=== PATIENT | male | born 1965 | race Caucasian/White ===

== ENCOUNTER 2018-03-08 21:23 | Inpatient (IN) | payer MEDICARE, MEDICAID ==
[~2018-03-08] VITALS: Ht 157.5 cm; Wt 48.5 kg
--- NOTE | 2018-03-08 21:27 | NUR ---
PT TAKEN TO BED 11 VIA W/C
[2018-03-08 21:28] VITALS: BP 115/72
--- NOTE | 2018-03-08 21:28 | NUR ---
Dr. Rowan evaluating patient at bedside.
[2018-03-08] MEDS ORDERED: NACL 0.9% 1,000 ML IV ONE (21:30)
[2018-03-08] MEDS ORDERED: LORazepam 2 MG/ML VIAL IVP ONE ×2 (21:34→21:40)
[2018-03-08] MEDS ORDERED: LORazepam 2 MG/ML VIAL ONE (21:34)
--- NOTE | 2018-03-08 21:34 | NUR ---
52/M BIB , WAITING IN THE LOBBY, PT EXPERIENCED SEIZURE, PT TRANSPORTED TO BED 11 V[address] WHEELCHA[address] ER MD [address] AMATO AT BEDSIDE. SEIZURE PRECAUTIONS INITIATED, PT PLACED ON MONITOR, SPO2 99% ON ROOM AIR, RR 22, HR 115, BP 115/72 AT THIS TIME. IV ACCESS STARTED ON L AC AND R AC. 2MG ATIVAN IVP AND 1L NS BOLUS STARTED PER VERBAL ORDER FROM DR AMATO. DELGADO CATH STARTED, URINE SAMPLE SENT TO LAB. HX SEIZURE, RX DILANTIN, KEPPRA, DRONABINOL, AMITOPTYLINE. NKA.
[2018-03-08] MEDS ORDERED: NACL 0.9% IV ONE (21:40)
[2018-03-08] MEDS ORDERED: VALPROATE SODIUM IV ONE (21:40)
--- NOTE | 2018-03-08 21:40 | NUR ---
PT AWAKE, AOX4. PT DENIES PAIN AT THIS TIME. PT REPORTS LAST SEIZURE LAST WEDNESDAY, PT REPORTS BEING COMPLIANT WITH RX DILANTIN AND KEPPRA. PT REPORTS MARIJUANA/DRONABINOL USE, DENIES SUBSTANCE ABUSE.
[2018-03-08] MEDS ORDERED: VALPROATE SODIUM 500 MG/5 ML VIAL IV ONE (22:06)
--- NOTE | 2018-03-08 22:10 | NUR ---
DR AMATO STATED TO HOLD DEPAKON IV AND ATIVAN IV AT THIS TIME. DISCUSSED THAT PT TAKES RX DILANTIN AND KEPPRA. ORDERS PENDING AT THIS TIME.
[2018-03-08 22:20] LABS: BASOPHILS # (AUTO) 0.1 K/uL (0.00-0.22); BASOPHILS % (AUTO) 1.1 % (0.0-2.0); EOSINOPHILS # (AUTO) 0.1 K/uL (0-0.4); EOSINOPHILS % (AUTO) 2.2 % (0.0-4.0); LYMPHOCYTES # (AUTO) 2.4 K/uL (2.0-11.5); LYMPHOCYTES % (AUTO) 38.8 % (20.5-51.1); MEAN CORPUSCULAR HEMOGLOBIN 31 pg (27-31); MEAN CORPUSCULAR HGB CONC 34 g/dL (33-37); MONOCYTES # (AUTO) 0.5 K/uL (0.8-1.0); MONOCYTES % (AUTO) 7.8 % (1.7-9.3); NEUTROPHILS # (AUTO) 3.2 K/uL (1.8-7.7); NEUTROPHILS % (AUTO) 50.1 % (42.2-75.2); PLATELET COUNT (AUTO) 226 K/uL (140-450); RED BLOOD CELL COUNT(AUTO) 4.47 MIL/uL (4.20-6.10); RED CELL DISTRIBUTION WIDTH 13.4 % (11.6-13.7); WHITE BLOOD COUNT (AUTO) 6.3 K/uL (4.8-10.8)
[2018-03-08 22:29] LABS: BARBITURATE, URINE NEG. ng/ml (NEG <=200); BENZODIAZEPINE, URINE NEG. ng/mL (NEG <=200); CANNABINOID, URINE POS. ng/mL (NEG <=50); COCAINE, URINE NEG. ng/mL (NEG <=300); OPIATE, URINE NEG. ng/mL (NEG <=2000); PHENCYCLIDINE SCREEN,URINE NEG. ng/mL (NEG <=25)
[2018-03-08 22:30] LABS: ANION GAP 9.4 (8-16); CARBON DIOXIDE 29.2 mmol/L (21-32); CREATININE 1.2 mg/dL (0.7-1.3); POTASSIUM 3.6 mmol/L (3.5-5.1)
[2018-03-08 22:42] LABS: PHENOBARBITAL < 1 ug/ml (15-40); PHENYTOIN (DILANTIN) 21.6 ug/ml (10.0-20.0)
--- NOTE | 2018-03-08 23:26 | NUR ---
PT SLEEPING COMFORTABLY IN BED, RR EVEN AND UNLABORED. ALL NEEDS MET AT THIS TIME.
[2018-03-09] MEDS ORDERED: PHEN100C3 PO (00:04)
[2018-03-09] MEDS ORDERED: AMIT25TA28 PO (00:07)
[2018-03-09] MEDS ORDERED: LEVE1000 PO (00:07)
--- NOTE | 2018-03-09 01:31 | NUR ---
Patient appears to be resting comfortably in bed. Vital Signs within normal limits. Respirations even and unlabored.
--- NOTE | 2018-03-09 02:03 | NUR ---
RECEIVED CALL FROM [facility] [employer] SPOKE WITH THELMA, STATED SHE WILL CALL BACK.
--- NOTE | 2018-03-09 02:39 | NUR ---
Pt transferred to Tele via .
--- NOTE | 2018-03-09 02:45 | NUR ---
Patient will be admitted to [facility]. Admited to TELE. Will go to room 112A. Belongings list completed. Report to BROCK NIETO AT BEDSIDE.
[2018-03-09 02:50] VITALS: BP 115/77
--- NOTE | 2018-03-09 03:00 | NUR ---
ADMITTED PATIENT TO THE TELE UNIT, PATIENT AWAKE AND ORIENTED X3, NO S/S OF DISTRESS NOTED, RESPIRATION EVEN AND UNLABORED, IV PATENT AND INTACT, SL. TELE MONITOR PLACED ON PATIENT. DELGADO IN PLACE, DRAINING URINE BY GRAVITY. SEIZURE PRECAUTION IN PLACE, SAFETY MEASURE ENSURED, WILL CONTINUE TO MONITOR.
--- NOTE | 2018-03-09 06:23 | NUR ---
PATIENT IS SLEEPING, NO S/S OF DISTRESS NOTED, CALL LIGHT WITHIN REACH, SAFETY MEASURE ENSURED, WILL CONTINUE TO MONITOR.
--- NOTE | 2018-03-09 07:30 | NUR ---
PATIENT AND REPORT RECEIVED FROM WEAVER HAND YAMILET salcedo
--- NOTE | 2018-03-09 07:32 | NUR ---
ENDORSED PLAN OF CARE TO DAY SHIFT, PATIENT RESTING IN BED, IN STABLE CONDITION.
[2018-03-09 08:11] VITALS: BP 98/53
[2018-03-09] MEDS ORDERED: PHENYTOIN 100 MG CAPER PO SCH (09:00)
--- NOTE | 2018-03-09 09:51 | NUR ---
PATIENT HAS BEEN SCREENED AND CATEGORIZED MODERATE NUTRITION RISK. PATIENT WILL BE SEEN WITHIN 3-5 DAYS OF ADMISSION. 03/11/18 03/13/[address]
[2018-03-09] MEDS: levETIRAcetam 500 MG TAB PO SCH ×2 (10:15→21:13)
--- NOTE | 2018-03-09 11:49 | NUR ---
CLINICAL REVIEW FAXED TO [facility] AT [phone]
[2018-03-09 12:00] VITALS: BP 105/60
[2018-03-09] MEDS ORDERED: LORazepam 2 MG/ML VIAL IVP PRN (12:30)
[2018-03-09 14:00] VITALS: BP 105/60
[2018-03-09] MEDS: HYDROcodone/APAP 5/325 MG 1 TAB TAB PO PRN ×3 (14:06→17:44)
[2018-03-09] MEDS ORDERED: DIVALPROEX 500 MG TABEC PO SCH (15:15)
[2018-03-09 16:41] VITALS: BP 91/58
--- NOTE | 2018-03-09 19:25 | NUR ---
RECEIVED REPORT FROM DAY SHIFT NURSE SRI-BROCK. PT RESTING IN BED WITH AT BEDSIDE. AOX4, ON ROOM AIR WITH IV RIGHT AC 20G AND LEFT AC 18G BOTH SALINE LOCKED. IV PATENT AND INTACT. TELE MONITOR PLACED ON PATIENT. DELGADO IN PLACE, DRAINING URINE BY GRAVITY. SEIZURE PRECAUTION IN PLACE. DISCUSSED PLAN OF CARE AND PT VERBALIZED UNDERSTANDING. NO S/S OF RESPIRATORY DISTRESS OR DISCOMFORT NOTED AT THIS TIME. WHITE BOARD UPDATED. BED IN LOWEST POSITION, BED BREAKS ON, SIDE RAILS UP AND PADDED. BED SIDE TABLE AND CALL LIGHT WITHIN REACH. WILL CONTINUE TO MONITOR.
[2018-03-09 20:00] VITALS: BP 101/71
--- NOTE | 2018-03-09 20:00 | NUR ---
VITAL SIGNS TAKEN AND TOLERATED WELL. WILL CONTINUE TO MONITOR.
[2018-03-09] MEDS ORDERED: AMITRIPTYLINE 25 MG TAB PO SCH (21:00)
[2018-03-09] MEDS: DIVALPROEX 500 MG TABEC PO SCH (21:13)
--- NOTE | 2018-03-09 21:15 | NUR ---
SCHEDULED MEDICATION GIVEN AND TOLERATED WELL. WILL CONTINUE TO MONITOR.
--- NOTE | 2018-03-09 22:00 | NUR ---
PT SLEEPING AT THIS TIME. NO S/S OF RESPIRATORY DISTRESS OR DISCOMFORT NOTED AT THIS TIME. WILL CONTINUE TO MONITOR.
[2018-03-10] VITALS: BP 100/64
--- NOTE | 2018-03-10 | NUR ---
VITAL SIGNS TAKEN AND TOLERATED WELL. NO S/S OF RESPIRATORY DISTRESS OR DISCOMFORT NOTED AT THIS TIME. WILL CONTINUE TO MONITOR.
--- NOTE | 2018-03-10 02:00 | NUR ---
PT CONTINUE TO SLEEP. WILL CONTINUE TO MONITOR.
[2018-03-10 04:00] VITALS: BP 94/55
--- NOTE | 2018-03-10 04:00 | NUR ---
VITAL SIGNS TAKEN AND TOLERATED WELL. NO S/S OF RESPIRATORY DISTRESS OR DISCOMFORT. WILL CONTINUE TO MONITOR.
--- NOTE | 2018-03-10 06:00 | NUR ---
PT CONTINUES TO SLEEP. WILL CONTINUE TO MONITOR.
[2018-03-10 06:56] LABS: BASOPHILS % (AUTO) 0.5 % (0.0-2.0); EOSINOPHILS # (AUTO) 0.2 K/uL (0-0.4); EOSINOPHILS % (AUTO) 2.6 % (0.0-4.0); HEMATOCRIT 43.3 % (36-52); HEMOGLOBIN 14.6 g/dL (12.0-18.0); LYMPHOCYTES # (AUTO) 2.9 K/uL (2.0-11.5); LYMPHOCYTES % (AUTO) 48.1 % (20.5-51.1); MEAN CORPUSCULAR HEMOGLOBIN 31 pg (27-31); MEAN CORPUSCULAR HGB CONC 34 g/dL (33-37); MONOCYTES # (AUTO) 0.4 K/uL (0.8-1.0); MONOCYTES % (AUTO) 5.9 % (1.7-9.3); NEUTROPHILS # (AUTO) 2.6 K/uL (1.8-7.7); NEUTROPHILS % (AUTO) 42.9 % (42.2-75.2); PLATELET COUNT (AUTO) 233 K/uL (140-450); RED BLOOD CELL COUNT(AUTO) 4.66 MIL/uL (4.20-6.10); RED CELL DISTRIBUTION WIDTH 13.4 % (11.6-13.7)
[2018-03-10 07:13] LABS: ANION GAP 12.1 (8-16); CARBON DIOXIDE 27.6 mmol/L (21-32); CREATININE 0.8 mg/dL (0.7-1.3); POTASSIUM 3.7 mmol/L (3.5-5.1)
--- NOTE | 2018-03-10 07:18 | NUR ---
RECEIVED REPORT FROM NIGHTSHIFT NURSE AT BEDSIDE. PATIENT IS ASLEEP AT THIS TIME BUT AROUSABLE. PATIENT IS ALERT AND ORIENTED X2 TO NAME AND BIRTHDAY. REORIENTED PATIENT THAT HE IS IN [facility] AND NOT [place]. PATIENT HAS AN IV NOTED ON THE LEFT AC AREA 18 G SL. PATIENT HAS ANOTHER IV ON THE LEFT AC 20 G. PATIENT DOES NOT DISPLAY ANY DISTRESS. NO PAIN NOTED. PATIENT'S RAILS ARE PADDED FOR SEIZURE PRECAUTIONS. DELGADO CATHETER IN PLACE DRAINING WELL. CALL LIGHT WITHIN REACH OF PATIENT. BED IS IN LOWEST POSITION. INSTRUCTED PATIENT TO CALL IF HE NEEDS HELP WITH ANYTHING. UPDATED BOARD IN PATIENT'S ROOM. WILL CONTINUE TO MONITOR PATIENT.
--- NOTE | 2018-03-10 07:18 | NUR ---
ENDORSED PT CARE TO DAY SHIFT NURSE PERLITA FOR CONTINUITY OF CARE.
[2018-03-10 07:28] LABS: MAGNESIUM 2.1 mg/dL (1.8-2.4); PHOSPHORUS 3.7 mg/dL (2.5-4.9); THYROID STIMULATING HORMONE 1.64 uIU/mL (0.34-3.74)
[2018-03-10 08:00] VITALS: BP 102/54
[2018-03-10] MEDS: levETIRAcetam 500 MG TAB PO SCH (08:33)
[2018-03-10] MEDS: DIVALPROEX 500 MG TABEC PO SCH (08:34)
--- NOTE | 2018-03-10 08:34 | NUR ---
ALL AM MEDICATIONS TAKEN. PATIENT TOLERATED WELL. WILL CONTINUE TO MONITOR PATIENT.
[2018-03-10] MEDS ORDERED: THIAMINE 100 MG TAB PO SCH (09:00)
[2018-03-10] MEDS ORDERED: MULTIVITAMIN 1 TAB PO SCH (09:00)
[2018-03-10] MEDS ORDERED: FOLIC ACID 1 MG TAB PO SCH (09:00)
--- NOTE | 2018-03-10 09:17 | NUR ---
PATIENT RESTING IN BED AT THIS TIME. NO DISTRESS NOTED. WILL CONTINUE TO MONITOR PATIENT.
--- NOTE | 2018-03-10 12:15 | NUR ---
PATIENT SIGNED ALL DISCHARGE INSTRUCTIONS AND IS AWARE OF ALL PRESCRIPTIONS. DISCONTINUED PATIENT'S IV LINE WITH CATHETER STILL INTACT. TOOK OFF PATIENT'S IDENTIFICATION BANDS. PATIENT GATHERED ALL BELONGINGS AND LEFT VIA WHEELCHAIR WITH FAMILY MEMBER. PATIENT LEFT THE UNIT IN STABLE CONDITION.
== END 2018-03-10 12:15 | disposition home or self-care (01) | DRG 101 ==
LOC: MED 21:23 → MTU 03-09 02:05
PROVIDERS: ADMIT Internal Medicine; ATTEND Internal Medicine
DX: G40.409 Other generalized epilepsy and epileptic syndromes, not intractable, without status epilepticus (principal); F10.20 Alcohol dependence, uncomplicated; F17.200 Nicotine dependence, unspecified, uncomplicated; Z87.820 Personal history of traumatic brain injury; F12.90 Cannabis use, unspecified, uncomplicated
CPT/HCPCS: 36415; 51702; 71045; 80048; 80156; 80184; 80185; 80305; 83036; 83735; 84100; 84443; 85025; 87081; 93005; 95816; 96374; 99285; J2060; J3490; Q0092

== ENCOUNTER 2018-03-11 14:01 | Emergency (ER) | payer MEDICARE, MEDICAID ==
[~2018-03-11] VITALS: Ht 157.5 cm; Wt 68.0 kg
[~2018-03-11 14:01] MED LIST: AMIT25TA28 PO; LEVE1000 PO
[2018-03-11 14:03] VITALS: BP 111/67
--- NOTE | 2018-03-11 14:10 | NUR ---
PT BIBA FOR SEIZURE ACTIVITY. ACCORDING TO [facility], PATIENT HAD 3 SEIZURES LASTING 10-15 SEC EN ROUTE TO HOSPITAL. PT WAS GIVEN 2.5MG VERSED INTRANASAL EN ROUTE, IV WAS STARTED BY [facility]. LEFT AC 20G. PUPILS PERRL. CAP REFILL ON LEFT THUMB <3SEC. SEIZURE PRECAUTIONS INITIATED. DENIES N/V/D; SKIN IS PINK/WARM/DRY; AAOX3 WITH EVEN AND STEADY GAIT; LUNGS CLEAR BL; HR EVEN AND REGULAR; PT DENIES ANY FEVER, CP, SOB, OR COUGH AT THIS TIME; PATIENT STATES PAIN OF 7/10 AT THIS TIME AT THE BACK OF HEAD; VSS; PATIENT POSITIONED FOR COMFORT; HOB ELEVATED; BEDRAILS UP X2; BED DOWN. ER MD MADE AWARE OF PT STATUS.
[2018-03-11] MEDS ORDERED: NACL 0.9% 1,000 ML IV SCH (14:12)
[2018-03-11] MEDS ORDERED: LORazepam 2 MG/ML VIAL IVP ONE (14:15)
--- NOTE | 2018-03-11 15:05 | NUR ---
PATIENT CAME BACK FROM CT
[2018-03-11 15:30] LABS: BASOPHILS # (AUTO) 0.1 K/uL (0.00-0.22); EOSINOPHILS # (AUTO) 0.1 K/uL (0-0.4); EOSINOPHILS % (AUTO) 2.2 % (0.0-4.0); HEMATOCRIT 39.7 % (36-52); HEMOGLOBIN 13.4 g/dL (12.0-18.0); LYMPHOCYTES # (AUTO) 1.9 K/uL (2.0-11.5); LYMPHOCYTES % (AUTO) 39.3 % (20.5-51.1); MEAN CORPUSCULAR HEMOGLOBIN 31 pg (27-31); MEAN CORPUSCULAR HGB CONC 34 g/dL (33-37); MEAN CORPUSCULAR VOLUME 92.2 fL (80-94); MONOCYTES # (AUTO) 0.4 K/uL (0.8-1.0); MONOCYTES % (AUTO) 7.7 % (1.7-9.3); NEUTROPHILS # (AUTO) 2.5 K/uL (1.8-7.7); NEUTROPHILS % (AUTO) 49.8 % (42.2-75.2); PLATELET COUNT (AUTO) 211 K/uL (140-450); RED CELL DISTRIBUTION WIDTH 13.5 % (11.6-13.7)
[2018-03-11 16:24] LABS: AMYLASE 79 U/L (25-115); ANION GAP 11.6 (8-16); ASPARTATE AMINOTRANSFERASE 16 U/L (15-37); CARBON DIOXIDE 26.9 mmol/L (21-32); CHLORIDE 107 mmol/L (98-107); CREATININE 0.8 mg/dL (0.7-1.3); GFR ARICAN-AMERICAN 131 mL/min (>90); GLUCOSE 82 mg/dL (74-106); LIPASE 118 U/L (73-393); PHENOBARBITAL 2 ug/ml (15-40); PHENYTOIN (DILANTIN) 11.8 ug/ml (10.0-20.0); POTASSIUM 3.5 mmol/L (3.5-5.1); SODIUM SERUM 142 mmol/L (136-145); TOTAL BILIRUBIN 0.2 mg/dL (0.0-1.0); UREA NITROGEN, BLOOD 18 mg/dL (7-18)
[2018-03-11 17:16] LABS: APPEARANCE,URINE CLEAR (CLEAR); BILIRUBIN,URINE NEGATIVE (NEGATIVE); BLOOD, URINE 1+ (NEGATIVE); COLOR,URINE STRAW (YELLOW); LEUKOCYTE ESTERASE ,URINE NEGATIVE (NEGATIVE); NITRITE, URINE NEGATIVE (NEGATIVE); PH,URINE 6.5 (5.0-9.0); UGLUCOSE NEGATIVE (NEGATIVE)
[2018-03-11 17:23] LABS: BARBITURATE, URINE NEG. ng/ml (NEG <=200); BENZODIAZEPINE, URINE POS. ng/mL (NEG <=200); CANNABINOID, URINE POS. ng/mL (NEG <=50); COCAINE, URINE NEG. ng/mL (NEG <=300); OPIATE, URINE NEG. ng/mL (NEG <=2000); PHENCYCLIDINE SCREEN,URINE NEG. ng/mL (NEG <=25)
[2018-03-11 17:28] LABS: RBC,URINE NONE SEEN /HPF (0-5); WBC,URINE NONE SEEN /HPF (0-5)
[2018-03-11 18:03] VITALS: BP 113/70
--- NOTE | 2018-03-11 18:03 | NUR ---
Patient discharged with v/s stable. Written and verbal after care instructions given and explained. Patient verbalized understanding. Wheel Chair Assisted with to car. All questions addressed prior to discharge. Advised to follow up with PMD.
== END 2018-03-11 17:55 | disposition home or self-care (01) ==
LOC: MED 14:01
DX: G40.89 Other seizures (principal); R94.31 Abnormal electrocardiogram [ECG] [EKG]; Z79.899 Other long term (current) drug therapy
CPT/HCPCS: 36415; 70450; 71045; 80053; 80156; 80184; 80185; 80305; 81001; 82150; 82550; 83690; 83735; 84484; 85025; 93005; 96361; 96374; 99285; G0482; J2060; Q0092

== ENCOUNTER 2022-09-13 23:12 | Emergency (ER) | payer OTHER, BC ==
[~2022-09-13] VITALS: Ht 157.5 cm; Wt 59.0 kg
--- NOTE | 2022-09-13 23:22 | NUR ---
BIBA TO BED #11
--- NOTE | 2022-09-13 23:26 | NUR ---
pt came with ambuilance from [facility] , pt is alert and oriented x 4. pt is usteady. answers question . [place].
--- NOTE | 2022-09-13 23:27 | NUR ---
pt has cough and fever 100.2
[2022-09-13 23:28] VITALS: BP 125/56
--- NOTE | 2022-09-13 23:34 | NUR ---
pt is compaling about the pain realtyed to headache
[2022-09-13] MEDS ORDERED: NACL 0.9% 1,000 ML IV ONE (23:45)
[2022-09-13] MEDS ORDERED: levETIRAcetam 500 MG TAB PO ONE (23:45)
[2022-09-13] MEDS ORDERED: ACETAMINOPHEN EXTRA STRENGTH 500 MG TAB PO ONE (23:45)
[2022-09-14 00:19] LABS: BASOPHILS % (AUTO) 0.7 % (0.0-2.0); EOSINOPHILS % (AUTO) 0.6 % (0.0-4.0); HEMATOCRIT 42.7 % (36-52); HEMOGLOBIN 14.7 g/dL (12.0-18.0); LYMPHOCYTES % (AUTO) 14.9 % (20.5-51.1); MEAN CORPUSCULAR HEMOGLOBIN 33 pg (27-31); MEAN CORPUSCULAR HGB CONC 35 g/dL (33-37); MEAN CORPUSCULAR VOLUME 94.9 fL (80-94); MONOCYTES # (AUTO) 0.6 K/uL (0.8-1.0); MONOCYTES % (AUTO) 8.3 % (1.7-9.3); NEUTROPHILS # (AUTO) 5.1 K/uL (1.8-7.7); NEUTROPHILS % (AUTO) 75.5 % (42.2-75.2); PLATELET COUNT (AUTO) 153 K/uL (140-450); RED CELL DISTRIBUTION WIDTH 13.3 % (11.6-13.7); WHITE BLOOD COUNT (AUTO) 6.7 K/uL (4.8-10.8)
[2022-09-14 00:46] LABS: ALBUMIN 3.5 g/dL (3.4-5.0); ANION GAP 10.9 (8-16); CARBON DIOXIDE 29.6 mmol/L (21-32); CREATININE 0.9 mg/dL (0.6-1.3); POTASSIUM 3.5 mmol/L (3.5-5.1); TOTAL BILIRUBIN 0.3 mg/dL (0.0-1.0)
[2022-09-14] MEDS ORDERED: DOXY-690 PO (01:25)
[2022-09-14 01:46] VITALS: BP 110/83
--- NOTE | 2022-09-14 01:48 | NUR ---
Patient discharged with v/s stable. Written and verbal after care instructions given and explained. Patient verbalized understanding. Wheel Chair Assisted with to car. All questions addressed prior to discharge. Advised to follow up with PMD. pt went home with ex .
== END 2022-09-14 01:48 | disposition home or self-care (01) ==
LOC: MED 23:12
DX: J18.9 Pneumonia, unspecified organism (principal); Z20.822 Contact with and (suspected) exposure to COVID-19; G40.89 Other seizures
CPT/HCPCS: 36415; 71045; 80053; 85025; 87426; 87804; 96360; 96361; 99284; J7030; Q0092

== ENCOUNTER 2024-05-21 11:08 | Emergency (ER) | payer OTHER, MEDICAID ==
[~2024-05-21] VITALS: Ht 167.6 cm; Wt 63.5 kg
[2024-05-21 11:08] VITALS: BP 121/64; PULSE 73; RESP 16; TEMP 98.3; O2SAT 95
[~2024-05-21 11:08] MED LIST changes: +DOXY-690 PO
[2024-05-21] MEDS ORDERED: levETIRAcetam 100 MG/ML VIAL IV ONE (11:27)
[2024-05-21 11:43] LABS: BASOPHILS % (AUTO) 0.6 % (0.0-2.0); HEMATOCRIT 40.6 % (36-52); HEMOGLOBIN 13.8 g/dL (12.0-18.0); LYMPHOCYTES # (AUTO) 1.9 K/uL (2.0-11.5); LYMPHOCYTES % (AUTO) 38.7 % (20.5-51.1); MEAN CORPUSCULAR HEMOGLOBIN 32 pg (27-31); MEAN CORPUSCULAR HGB CONC 34 g/dL (33-37); MEAN CORPUSCULAR VOLUME 94.9 fL (80-94); MONOCYTES # (AUTO) 0.3 K/uL (0.8-1.0); MONOCYTES % (AUTO) 6.5 % (1.7-9.3); NEUTROPHILS # (AUTO) 2.6 K/uL (1.8-7.7); NEUTROPHILS % (AUTO) 53.2 % (42.2-75.2); PLATELET COUNT (AUTO) 150 K/uL (140-450); RED BLOOD CELL COUNT(AUTO) 4.27 MIL/uL (4.20-6.10); RED CELL DISTRIBUTION WIDTH 13.7 % (11.6-13.7); WHITE BLOOD COUNT (AUTO) 4.8 K/uL (4.8-10.8)
[2024-05-21] MEDS: levETIRAcetam 1,000 MG in NACL 0.9% 100 ML IV ONE (11:45)
[2024-05-21 11:59] LABS: ANION GAP 11.4 (8-16); CALCIUM 8.3 mg/dL (8.5-10.1); CARBON DIOXIDE 25.2 mmol/L (21-32); CREATININE 0.8 mg/dL (0.6-1.3); POTASSIUM 3.6 mmol/L (3.5-5.1)
[2024-05-21 13:26] LABS: APPEARANCE,URINE CLEAR (CLEAR); BILIRUBIN,URINE NEGATIVE (NEGATIVE); BLOOD, URINE NEGATIVE (NEGATIVE); COLOR,URINE YELLOW (YELLOW); LEUKOCYTE ESTERASE ,URINE NEGATIVE (NEGATIVE); NITRITE, URINE NEGATIVE (NEGATIVE); PH,URINE 7.5 (5.0-9.0); PROTEIN,URINE NEGATIVE (NEGATIVE); UGLUCOSE NEGATIVE (NEGATIVE); UROBILINOGEN,URINE 0.2 EU/dL (0.2 - 1)
[2024-05-21 16:12] VITALS: BP 111/75; PULSE 59; RESP 14; TEMP 98.3; O2SAT 98
== END 2024-05-21 16:12 | disposition home or self-care (01) ==
LOC: MED 11:08
DX: G40.509 Epileptic seizures related to external causes, not intractable, without status epilepticus (principal); Z91.148 Patient's other noncompliance with medication regimen for other reason; Z79.899 Other long term (current) drug therapy
CPT/HCPCS: 36415; 80048; 81003; 85025; 96365; 99285; J1953

== ENCOUNTER 2024-06-10 23:56 | Emergency (ER) | payer OTHER, MEDICAID ==
[~2024-06-10] VITALS: Ht 157.5 cm; Wt 62.6 kg
[2024-06-10 23:58] VITALS: BP 120/79; PULSE 69; RESP 18; TEMP 98; O2SAT 97
[2024-06-11] VITALS: BP 120/79; PULSE 69; RESP 18; TEMP 98
--- NOTE | 2024-06-11 00:03 | NUR ---
SEEN AND EXAMINED BY SOLA WITH ORDERS AND CARRIED OUT.
[2024-06-11 00:05] VITALS: O2SAT 97
[2024-06-11] MEDS ORDERED: levETIRAcetam 100 MG/ML VIAL IV ONE (00:09)
--- NOTE | 2024-06-11 00:13 | NUR ---
MEDICATED PER ERMD'S ORDER, TOLERATED WELL.
[2024-06-11] MEDS: levETIRAcetam 1,000 MG in NACL 0.9% 100 ML IV ONE (00:15)
[2024-06-11 00:31] LABS: ANION GAP 13.7 (8-16); CALCIUM 8.4 mg/dL (8.5-10.1); CARBON DIOXIDE 27.5 mmol/L (21-32); POTASSIUM 3.2 mmol/L (3.5-5.1)
--- NOTE | 2024-06-11 02:31 | NUR ---
Patient discharged with v/s stable. Written and verbal after care instructions given and explained. Patient verbalized understanding. Ambulatory with steady gait. All questions addressed prior to discharge. Advised to follow up with PMD.
== END 2024-06-11 02:31 | disposition home or self-care (01) ==
LOC: MED 23:56
DX: G40.509 Epileptic seizures related to external causes, not intractable, without status epilepticus (principal); Z79.899 Other long term (current) drug therapy
CPT/HCPCS: 36415; 80048; 96365; 99284; J1953